=== PATIENT | female | born 1980 | race Native Hawaiian/Other Pacific Islander ===

== ENCOUNTER 2016-09-05 08:06 | Emergency (ER) | payer OTHER ==
[2016-09-05] MEDS ORDERED: TYLENOL PO ONE (08:17)
[2016-09-05] MEDS ORDERED: ZOFRAN ODT ONE (08:21)
[2016-09-05] MEDS ORDERED: ZOFRAN ODT PO ONE (08:29)
[2016-09-05 09:07] LABS: Bilirubin,Urine NEG (Negative); Blood,Urine MOD (Negative); Ketones,Urine TR mg/dL (Negative); Leukocyte Esterase,Urine NEG (Negative); Mucus,Urine 2+ /HPF; Nitrite,Urine NEG (Negative); Protein,Urine <15 mg/dL mg/dL (Negative); Urobilinogen,Urine < 2.0 mg/dL (<2.0)
[2016-09-05 09:15] LABS: Basophils % (Auto) 0.3 % (0.0-1.8); Eosinophils % (Auto) 1.4 % (0.0-4.3); Hematocrit 38.3 % (30.3-42.9); Mean Corpuscular HGB Conc 33 % (30-34); Mean Corpuscular Hemoglobin 27 pg (28-32); Mean Corpuscular Volume 82 fl (79-97); Platelet Count 243 K/mm3 (140-440); Red Blood Count 4.68 M/mm3 (3.65-5.03); Red Cell Distribution Width 14.3 % (13.2-15.2); White Blood Count 11.9 K/mm3 (4.5-11.0)
[2016-09-05 09:17] LABS: Diff Status Complete; Hemoglobin 12.6 gm/dl (10.1-14.3)
--- NOTE | 2016-09-05 09:17 | XRay Report ---
Chest 2 views: History: Chest pain. Findings: Normal cardiomediastinal silhouette. Trachea is midline. No consolidation, pneumothorax or pleural effusion. Impression: No acute cardiopulmonary findings.
[2016-09-05 09:27] LABS: Anion Gap 18 mmol/L; BUN/Creatinine Ratio 14.28; Blood Urea Nitrogen 10 mg/dL (7-17); Calcium 8.9 mg/dL (8.4-10.2); Carbon Dioxide 23 mmol/L (22-30); Chloride 98.7 mmol/L (98-107); Glucose 111 mg/dL (65-100); Sodium 136 mmol/L (137-145)
[2016-09-05] MEDS ORDERED: AUGMENTIN 875 MG PO ONE (15:42)
[2016-09-05] MEDS ORDERED: MOTRIN PO ONE (15:42)
[2016-09-05] MEDS ORDERED: LIDOCAINE VISCOUS 2% PO ONE (15:42)
--- NOTE | 2016-09-05 15:46 | Emergency Department Report ---
HPI - General Chief Complaint: Nausea/Vomiting/Diarrhea Time Seen by Provider: 09/05/16 14:45 - HPI HPI: The patient is a 35-year-old female who presents for evaluation of sore throat. The patient reports sore throat for the past 5 days, burning in quality, moderate in severity, exacerbated with swallowing, and associated with movement of fever, constant severe nausea without emesis, exacerbated with position changes, and also generalized myalgias. The patient denies headache, neck pain or stiffness, chest pain, dyspnea, dysphagia, stridor, drooling, difficulty tolerating secretions, dysphonia, hoarseness of voice, abdominal pain. ED Past Medical Hx - Past Medical History Previous Medical History?: Yes Hx Heart Attack/AMI: No Hx Seizures: No Hx Asthma: No Additional medical history: hypothyroid ,chronic gastritis - Surgical History Past Surgical History?: Yes Hx Cholecystectomy: Yes Hx Appendectomy: Yes Additional Surgical History: Tubal ligation. x2. gall bladder removal. bladdr suspension - Social History Smoking Status: Never Smoker Substance Use Type: None - Medications Home Medications: Home Medications Medication Instructions Recorded Confirmed Last Taken Type Levothyroxine [Synthroid] 40 mcg PO QAM 10/02/15 10/05/15 10/03/15 History Omeprazole [PriLOSEC] 40 mg PO BID 10/02/15 10/05/15 10/03/15 History oxyCODONE /ACETAMINOPHEN [Percocet 1 tab PO Q6HR PRN #16 tablet 10/05/15 Unknown Rx 5/325] HYDROcodone/APAP 5-325 [[place] 1 each PO Q6HR PRN #12 tablet 03/11/16 Unknown Rx 5/325] predniSONE [Deltasone] 50 mg PO QDAY #5 tab 03/11/16 Unknown Rx Cephalexin [Keflex] 500 mg PO Q8HR #15 cap 05/05/16 Unknown Rx Amoxicillin/K Clav Tab [Augmentin 1 tab PO Q12HR #20 tab 09/05/16 Unknown Rx 875 mg] HYDROcodone/APAP 7.5-325 [[place]] 15 ml PO Q4HR PRN #120 ml 09/05/16 Unknown Rx Ibuprofen [Motrin] 800 mg PO Q8HR PRN #14 tablet 09/05/16 Unknown Rx Ondansetron [Zofran TAB] 4 mg PO Q8HR PRN #20 tablet 09/05/16 Unknown Rx ED Review of Systems ROS: Stated complaint: FEVER/BODY PAIN/THROAT PAIN Other details as noted in HPI Constitutional: reports fever and generalized myalgias ENT: reports soreness of throat Respiratory: denies: cough, shortness of breath Cardiovascular: chest pain Endocrine: denies unexplained weight loss or gain Gastrointestinal: denies: abdominal pain reports nausea Genitourinary: denies: dysuria Musculoskeletal: denies: leg swelling Skin: denies: rash Neurological: denies: headache Hematological/Lymphatic: denies: easy bleeding or easy bruising Psych: denies sadness or hopelessness Physical Exam - Physical Exam Vital Signs: Vital Signs 09/05/16 09/05/16 09/05/16 08:12 14:55 14:57 Temperature 100.3 F H 99.8 F H Pulse Rate 135 H 105 H Respiratory 16 16 Rate Blood Pressure 126/84 Blood Pressure 114/74 [Left] O2 Sat by Pulse 100 100 100 Oximetry Physical Exam: General: well-nourished, well-developed, no acute distress Head: Normocephalic, atraumatic Eyes: normal sclera ENT: Mucous membranes are pink and moist, bilateral tonsillar erythema and mild swelling present, tonsillar exudates present, no uvula or soft palate deviation , no pooling of secretions in the posterior oropharynx Neck: trachea midline, neck supple, No neck stiffness, bilateral anterior cervical adenopathy present Respiratory: Breath sounds equal bilaterally, no wheezing, rales, or rhonchi Cardio: S1 and S2 present, no murmurs, rubs, gallops, capillary refill is brisk Abdomen: Normoactive bowel sounds, soft abdomen, no tenderness Musc: No pitting edema Skin: No rash Neuro: no facial drooping, normal speech Psych: Normal affect ED Course Vital Signs 09/05/16 09/05/16 09/05/16 08:12 14:55 14:57 Temperature 100.3 F H 99.8 F H Pulse Rate 135 H 105 H Respiratory 16 16 Rate Blood Pressure 126/84 Blood Pressure 114/74 [Left] O2 Sat by Pulse 100 100 100 Oximetry ED Medical Decision Making - Lab Data Result diagrams: 09/05/16 08:16 09/05/16 08:16 - Medical Decision Making The patient was seen and examined by myself. The patient is placed on a monitoring manager and continuous pulse ox. On initial evaluation, the patient was found to be in no distress. Evaluation orders were placed. The patient is given Tylenol for fever and myalgias, and liquid Motrin and viscous lidocaine for her sore throat pain. She was given Zofran for her nausea. The patient has a centor score of 3 and she will be treated for strep pharyngitis. She is given Augmentin for treatment of strep pharyngitis versus tonsillitis. Lab results are grossly unrevealing including negative mono screen and influenza screens. Chest x-ray is unremarkable. The patient was reevaluated and reported that their symptoms were markedly improved. She is given a prescription for Augmentin and pain medicine. The patient is stable for discharge with outpatient follow-up. The patient is given follow-up and return instructions. The patient expressed understanding and agreed with the plan. The patient is discharged in stable condition. Critical care attestation.: If time is entered above; I have spent that time in minutes in the direct care of this critically ill patient, excluding procedure time. ED Disposition Clinical Impression: Fever in adult, Acute bacterial tonsillitis Pharyngitis Qualifiers: Pharyngitis/tonsillitis etiology: streptococcus Qualified Code(s): J02.0 - Streptococcal pharyngitis Disposition: DISCHARGED TO HOME OR SELFCARE Is pt being admited?: No Does the pt Need Aspirin: No Condition: Stable Instructions: Strep Throat (ED), Tonsillitis (ED) Prescriptions: Amoxicillin/K Clav Tab [Augmentin 875 mg] 1 tab PO Q12HR #20 tab HYDROcodone/APAP 7.5-325 [[place]] 15 ml PO Q4HR PRN #120 ml PRN Reason: Pain Ibuprofen [Motrin] 800 mg PO Q8HR PRN #14 tablet PRN Reason: Pain Ondansetron [Zofran TAB] 4 mg PO Q8HR PRN #20 tablet PRN Reason: Nausea Referrals: CELSO SKELTON MD [Primary Care Provider] - 3-5 Days Time of Disposition: 15:44
[2016-09-05 15:47] VITALS: BP 109/67
== END 2016-09-05 17:38 | disposition home or self-care (01) ==
LOC: ED 08:06
DX: J02.0 Streptococcal pharyngitis (principal); J03.90 Acute tonsillitis, unspecified; E03.9 Hypothyroidism, unspecified
CPT/HCPCS: 36415; 71020; 80048; 81001; 84703; 85025; 86308; 87116; 87400; 87430; 93005; 93010; 99284; Q0162

== ENCOUNTER 2017-05-12 09:01 | Observation (INO) | payer OTHER ==
--- NOTE | 2017-04-30 11:44 | Anesthesia Consultation ---
Anesthesia Consult and Med Hx Date of service: 04/30/17 - Airway Anesthetic Teeth Evaluation: Good ROM Head & Neck: Adequate Mental/Hyoid Distance: Adequate Mallampati Class: Class II Intubation Access Assessment: Probably Good - Pulmonary Exam CTA: Yes - Cardiac Exam Cardiac Exam: RRR - Pre-Operative Health Status ASA Pre-Surgery Classification: ASA2 Proposed Anesthetic Plan: General - Pulmonary Hx Smoking: No Hx Asthma: No Hx Respiratory Symptoms: No Hx Sleep Apnea: No - Cardiovascular System Hx Coronary Artery Disease: No Hx Heart Attack/AMI: No - Central Nervous System Hx Seizures: No - Gastrointestinal Hx Ulcer: Yes ( gastritis) - Endocrine Hx Hypothyroidism: Yes (on synthroid)
[2017-04-30 11:58] LABS: Basophils % (Auto) 0.5 % (0.0-1.8); Eosinophils % (Auto) 1.9 % (0.0-4.3); Hematocrit 40.4 % (30.3-42.9); Hemoglobin 13.3 gm/dl (10.1-14.3); Mean Corpuscular HGB Conc 33 % (30-34); Mean Corpuscular Hemoglobin 27 pg (28-32); Mean Corpuscular Volume 83 fl (79-97); Platelet Count 237 K/mm3 (140-440); Red Blood Count 4.86 M/mm3 (3.65-5.03); Red Cell Distribution Width 14.4 % (13.2-15.2)
[2017-04-30 12:18] LABS: Alanine Aminotransferase 25 units/L (7-56); Albumin 4.4 g/dL (3.9-5); Albumin/Globulin Ratio 1.5 %; Alkaline Phosphatase 57 units/L (35-129); Anion Gap 13 mmol/L; BUN/Creatinine Ratio 22; Blood Urea Nitrogen 11 mg/dL (7-17); Calcium 8.9 mg/dL (8.4-10.2); Carbon Dioxide 27 mmol/L (22-30); Chloride 104.7 mmol/L (98-107); Glucose 96 mg/dL (65-100); Sodium 141 mmol/L (137-145); Total Protein 7.3 g/dL (6.3-8.2)
[~2017-05-12 09:01] MED LIST: NEURONTIN PO NR; PEPCID PO NR; SUBLIMAZE IV SCH; VERSED IV NR
[2017-05-12] MEDS: LACTATED RINGERS 1,000 ML IV SCH ×2 (09:40→12:00)
[2017-05-12] MEDS ORDERED: MARCAINE 0.5% 30 ML INFILTRATI ONE (10:18)
[2017-05-12] MEDS ORDERED: MARCAINE 0.25% INFILTRATI ONE (10:19)
[2017-05-12] MEDS ORDERED: ADRENALIN ONE (10:19)
[2017-05-12] MEDS ORDERED: ANCEF/STERILE WATER 2 GM/20 ML IV NR (11:00)
[2017-05-12] MEDS ORDERED: FLAGYL 500 MG/100 ML 500 MG/100 ML BAG IV NR (11:00)
[2017-05-12] MEDS ORDERED: XYLOCAINE MPF 2% ONE (11:11)
[2017-05-12] MEDS ORDERED: ZEMURON IV ONE (11:11)
[2017-05-12] MEDS ORDERED: DIPRIVAN 10 MG/ML IV ONE (11:11)
[2017-05-12] MEDS ORDERED: DILAUDID ONE ×2 (11:11→14:49)
[2017-05-12] MEDS ORDERED: METHYLENE BLUE ONE (11:12)
[2017-05-12] MEDS ORDERED: NEOSPORIN GU IR ONE ×2 (11:13→12:19)
[2017-05-12] MEDS ORDERED: NACL 0.9% IR ONE ×2 (12:19)
[2017-05-12] MEDS ORDERED: WATER FOR IRRIG STERILE IR ONE (12:20)
[2017-05-12] MEDS ORDERED: ZOFRAN ONE (12:55)
[2017-05-12] MEDS ORDERED: ROBINUL ONE (12:55)
[2017-05-12] MEDS ORDERED: DECADRON ONE (12:55)
[2017-05-12] MEDS ORDERED: NEOSTIGMINE ONE (12:55)
--- NOTE | 2017-05-12 14:24 | Short Stay Summary ---
Short Stay Documentation Date of service: 05/12/17 - History H&P: obtained from office - Allergies and Medications Current Medications: Allergies cinnamon Adverse Reaction (Verified 05/12/17 10:42) Swelling Home Medications Medication Instructions Recorded Confirmed Last Taken Type No Known Home Medications [No 05/08/17 05/08/17 Unknown History Reported Home Medications] Active Medications Cefazolin Sodium (Ancef/Sterile Water 2 Gm/20 Ml) 2 gm IV PREOP NR Stop: 05/12/17 21:00 Celecoxib (Celebrex) 200 mg PO PREOP NR Stop: 05/12/17 23:00 Last Admin: 05/12/17 09:50 Dose: 200 mg Famotidine (Pepcid) 20 mg PO PREOP NR Stop: 05/12/17 23:00 Last Admin: 05/12/17 09:50 Dose: 20 mg Fentanyl (Sublimaze) 100 mcg IV ONCE ANA Stop: 05/12/17 23:00 Last Admin: 05/12/17 09:50 Dose: 100 mcg Gabapentin (Neurontin) 300 mg PO PREOP NR Stop: 05/12/17 23:00 Last Admin: 05/12/17 09:50 Dose: 300 mg Lactated Ringer's (Lactated Ringers) 1,000 mls @ 100 mls/hr IV DIRECT ANA Last Admin: 05/12/17 12:00 Dose: 100 mls/hr Midazolam HCl (Versed) 2 mg IV PREOP NR Stop: 05/12/17 23:01 Last Admin: 05/12/17 09:50 Dose: 2 mg - Brief post op/procedure progress note Date of procedure: 05/12/17 Pre-op diagnosis: pelvic pain, menorrhagia, polymenorrhea, dyspareunia, dysuria , Post-op diagnosis: same Procedure: eua, laparoscopic, robot-assisted Extensive TATE, hysterectomy, bilateral salpingectomy, cystoscopy Anesthesia: GETA Findings: normal appearing uterus with extensive bladder adhesions to lower uterine segment, +omental adhesions to anterior abdominal wall, normal appearing ovaries bilaterally, bilateral tubes c/w a prior BTL. normal appearing bladder without lesions or masses, no significant trabeculations, demonstration of bilateral tubal patency Surgeon: CLIFTON CELESTIN Estimated blood loss: minimal Pathology: list (uterus, cervix (140 g), bilateral tubes) Specimen disposition: to lab Condition: stable - Disposition Condition at discharge: Good Disposition: DC-01 TO HOME OR SELFCARE Short Stay Discharge Plan Follow up with: CELSO SKELTON MD [Primary Care Provider] - 7 Days
[2017-05-12] MEDS ORDERED: TYLENOL PO PRN (14:33)
[2017-05-12] MEDS ORDERED: MILK OF MAGNESIA PO PRN (14:33)
[2017-05-12] MEDS ORDERED: REGLAN PO PRN (14:33)
[2017-05-12] MEDS ORDERED: ZOFRAN IV PRN (14:33)
[2017-05-12] MEDS ORDERED: SODIUM CHLORIDE FLUSH SYRINGE 10 ML IV PRN (14:33)
[2017-05-12] MEDS ORDERED: ZOFRAN PO PRN (14:33)
[2017-05-12] MEDS ORDERED: PHENERGAN PR PRN (14:33)
[2017-05-12] MEDS ORDERED: DULCOLAX PR PRN (14:33)
[2017-05-12] MEDS ORDERED: REGLAN IV PRN (14:33)
[2017-05-12] MEDS ORDERED: PERCOCET 5/325 PO PRN (14:33)
[2017-05-12] MEDS ORDERED: NORCO 5/325 PO PRN (14:33)
[2017-05-12] MEDS ORDERED: NARCAN 0.4 MG/1 ML IV PRN (14:33)
[2017-05-12] MEDS ORDERED: BENADRYL PO PRN ×2 (14:37)
[2017-05-12] MEDS ORDERED: BENADRYL IV PRN (14:37)
[2017-05-12] MEDS: DILAUDID IV PRN ×2 (14:50→15:39)
[2017-05-12] MEDS ORDERED: D5W/0.45% NACL/KCL 20 MEQ 20 MEQ/1,000 ML BAG IV SCH (15:00)
[2017-05-12] MEDS ORDERED: TORADOL ONE (15:32)
[2017-05-12] MEDS ORDERED: D5W/0.45% NACL/KCL 20 MEQ 20 MEQ/1,000 ML BAG IV ONE (15:33)
[2017-05-12] MEDS: TORADOL IV SCH ×2 (15:35→21:17)
--- NOTE | 2017-05-12 17:53 | Operative Report ---
DATE OF SURGERY: 05/12/2017 PREOPERATIVE DIAGNOSES: Pelvic pain, abnormal uterine bleeding consisting of menorrhagia and polymenorrhea, dyspareunia (with insertion and deep thrust), dysuria. POSTOPERATIVE DIAGNOSES: Pelvic pain, abnormal uterine bleeding consisting of menorrhagia and polymenorrhea, dyspareunia (with insertion and deep thrust), dysuria plus omental and bladder adhesions. PROCEDURE: EUA, laparoscopic robot assisted lysis of extensive adhesions, hysterectomy, bilateral salpingectomy, diagnostic cystoscopy. ANESTHESIA: General. FINDINGS: Pelvic pain, abnormal uterine bleeding consisting of menorrhagia and polymenorrhea, dyspareunia (with insertion and deep thrust), dysuria plus omental and bladder adhesions. The patient had extensive bladder adhesions to the lower uterine segment. There were omental adhesions to the anterior abdominal wall. On cystoscopy, she had a normal-appearing bladder with no lesions or masses. There was no significant trabeculation. She had dense demonstration of bilateral ureteral patency as evidenced by strong efflux of blue dye from both ureteral orifices after administration of methylene blue. Her uterus appeared normal with the exception of the adhesions as described. Her bilateral tubes were consistent with a previous bilateral tubal ligation. The proximal end of the right tube was distended with dark blood. The bilateral ovaries appeared normal. Appendix was not visualized. SURGEON: Sandi Mayers MD CLINICAL PROGRAM DIRECTOR: Mali Zazueta drilling assistant. ESTIMATED BLOOD LOSS: Less than 50 mL PATHOLOGY: Uterus, cervix (140 grams), bilateral tubes sent to lab. CONDITION: Stable. INDICATIONS: The patient is a 36-year-old female with pelvic pain, abnormal uterine bleeding consisting of menorrhagia and polymenorrhea, and burning when urinating. She reports a one year history of dyspareunia associated with insertion and deep penetration. She reports burning and pain during and after voiding with each void. The pain after voiding as described as a pulled muscle like sensation located on the right side that lasts approximately 30 minutes after voiding. She reports voiding 3-4 times during the daytime, denies nocturia, has a sensation of incomplete bladder emptying, but reports postvoid dribbling of a minimal amount. She denies urgency incontinence and stress urinary incontinence. She has been evaluated by Urology in the past and managed with Pyridium and VESIcare, but she had to discontinue the VESIcare due to the adverse side effects prior to noting any symptomatic improvement. Regarding her abnormal uterine bleeding, she reports occasional polymenorrhea with only 1 week between the end of one cycle on the beginning of the next and dysmenorrhea. Her heaviest day she saturates 3 extra large pads per day and still has accidental bleeding onto her undergarments. She has completed childbearing and is status post bilateral tubal ligation. She desires a definitive surgical treatment. A pelvic ultrasound in 12/2016 showed a lot of scar tissue on the right side associated with the thickened wall of the uterus. An endometrial biopsy from 12/2016 was negative. She is being brought to the operating room today for an EUA, laparoscopic robot-assisted hysterectomy, bilateral salpingectomy, possible lysis of adhesions for which General Surgery has been requested to be present, as well as a diagnostic cystoscopy. DESCRIPTION OF PROCEDURE: The patient was brought to the operating room where general anesthesia was administered without difficulty. She was prepared and draped in usual sterile fashion. She was positioned in dorsal lithotomy position. A Briggs catheter was placed in the bladder. A large Vcare device was placed in the uterus to provide a means of manipulating the uterus during the surgery. Attention was turned to the abdomen where a 5 mm optical trocar was placed in left upper quadrant, subcostal margin midclavicular line. A 12 mm trocar was placed approximately 3 fingerbreadths superior to the umbilicus in the midline. An 8 and a 12 mm trocar was placed 8-10 cm to right of midline. An 8 mm trocar was placed 8-10 cm to the left of midline. The robot was properly docked. Intraoperatively, she was noted to have findings as noted above. At this point, General Surgery assistance was not needed and they were no longer requested to be on standby. Lysis of omental adhesions was performed with monopolar scissors. The left round ligament and left uteroovarian ligaments were cauterized and transected. The exact same procedure was carried on contralateral side. The bladder was dissected from the lower uterine segment using monopolar scissors. The uterine vessels on both sides were skeletonized, cauterized, and transected. In a similar fashion, the bilateral cardinal ligaments were cauterized and transected. Following removal of the VCare device, a colpotomy was performed. The uterus and cervix were amputated and were removed from the pelvis via the vagina. The vaginal cuff was closed in a running fashion using a 0 V-Loc suture. A second layer of same suture was used to imbricate over the vaginal cuff to decrease the risk of future vaginal cuff dehiscence. Following this, the monopolar scissors were used to perform a bilateral salpingectomy. Hemostasis was confirmed. The bilateral tubes were removed from the abdomen and pelvis via the 12 mm trocar incision on the patient's right side. The abdomen and pelvis were irrigated. Hemostasis was confirmed. A 10 mL of Tisseel was generously applied over the bilateral salpingectomy sites as well as over the vaginal cuff. Following this, 2 sheets of Interceed were applied over same areas. All instruments were removed from the abdomen and pelvis. All fascial incisions greater than 8 mm were closed with 0 Vicryl suture. Skin was closed in subcuticular fashion. Dermabond was applied over the skin incisions. Attention was turned to the patient's bladder with the Briggs catheter was removed and diagnostic cystoscopy was performed with the findings as noted above. Following this, the Briggs catheter was reinserted after the cystoscope had been withdrawn. The patient tolerated the procedure well and was taken to the recovery room in awake and stable condition. JOB# [id number] BRAULIO/MOSES
[2017-05-12] MEDS ORDERED: MORPHINE IV PRN (18:01)
[2017-05-12] MEDS: MORPHINE IV PRN ×2 (18:22→20:24)
[2017-05-12] MEDS: ANCEF/NS 1 GM/50 ML 1 GM/50 ML BAG IV SCH (20:25)
[2017-05-12] MEDS: FLAGYL 500 MG/100 ML 500 MG/100 ML BAG IV SCH (21:18)
[2017-05-13] MEDS: MORPHINE IV PRN ×2 (00:02→02:12)
[2017-05-13] MEDS: ANCEF/NS 1 GM/50 ML 1 GM/50 ML BAG IV SCH (04:22)
[2017-05-13] MEDS: TORADOL IV SCH (04:23)
[2017-05-13 05:51] LABS: Hematocrit 36.3 % (30.3-42.9); Hemoglobin 11.9 gm/dl (10.1-14.3)
[2017-05-13] MEDS: FLAGYL 500 MG/100 ML 500 MG/100 ML BAG IV SCH (05:53)
--- NOTE | 2017-05-13 14:14 | Progress Note ---
Subjective Date of service: 05/13/17 Interval history: 1st POD after robotic hysterectomy Patient is in the bed, comfortable. pain is well under control. Ambulated well. No nausea or vomiting. Being discharged by the surgeon in good condition Objective - Constitutional Vitals: Vital Signs - 12hr 05/13/17 05/13/17 04:20 07:57 Temperature 98.6 F 98.1 F Pulse Rate 75 69 Respiratory 16 16 Rate Blood Pressure 114/67 97/57 [Right] - Labs CBC & Chem 7: 05/13/17 05:30 04/30/17 11:30
[2017-05-13 14:30] VITALS: BP 101/60
== END 2017-05-13 13:40 | disposition home or self-care (01) ==
LOC: OR 09:01 → OB 14:33
PROVIDERS: ADMIT Obstetrics & Gynecology Gynecology; ATTEND Obstetrics & Gynecology Gynecology
DX: N93.9 Abnormal uterine and vaginal bleeding, unspecified (principal); N92.0 Excessive and frequent menstruation with regular cycle; N94.10 Unspecified dyspareunia; R30.0 Dysuria; N32.89 Other specified disorders of bladder; G89.29 Other chronic pain; E03.9 Hypothyroidism, unspecified; Z90.49 Acquired absence of other specified parts of digestive tract; Z98.51 Tubal ligation status; Z83.3 Family history of diabetes mellitus; Z82.49 Family history of ischemic heart disease and other diseases of the circulatory system; Z87.891 Personal history of nicotine dependence
CPT/HCPCS: 36415; 52000; 58571; 64450; 80053; 81025; 84443; 85014; 85018; 85025; 88305; 88307; 96365; 96376; A4217; C1765; C9250; G0378; J0171; J0690; J1100; J1170; J1885; J2250; J2270; J2405; J2704; J2710; J3010; J7120; Q9968; S2900; 88302